=== PATIENT | male | born 1955 | race Caucasian/White ===

== ENCOUNTER 2022-05-12 06:56 | Day surgery (SDC) | payer MEDICARE, BC ==
[2022-05-12] MEDS ORDERED: Midazolam 1 MG/ML 2 ML SDV ONE (07:07)
[2022-05-12] MEDS ORDERED: Propofol 200 MG/20 ML SDV ONE (07:07)
[2022-05-12] MEDS ORDERED: fentaNYL 50 MCG/ML SDV ONE (07:08)
[2022-05-12] MEDS ORDERED: Dextrose 5%-Lactated Ringers 1,000 ML IV SCH (08:00)
== END 2022-05-12 12:55 | disposition home or self-care (01) ==
LOC: JP.SDS 06:56
PROVIDERS: ATTEND Surgery
DX: Z12.11 Encounter for screening for malignant neoplasm of colon (principal); K57.30 Diverticulosis of large intestine without perforation or abscess without bleeding; K64.8 Other hemorrhoids; E78.00 Pure hypercholesterolemia, unspecified; F17.200 Nicotine dependence, unspecified, uncomplicated; Z88.0 Allergy status to penicillin; Z86.010 Personal history of colon polyps; Z79.899 Other long term (current) drug therapy
CPT/HCPCS: G0105; J2250; J2704; J3010; J7121